=== PATIENT | female | born 1965 | race Caucasian/White ===

== ENCOUNTER → 2018-10-15 09:29 | Outpatient (CLI) | payer OTHER, SELFPAY ==
--- NOTE | 2018-10-15 | DI.US.S_ITS ---
PROCEDURE: US THYROID INDICATIONS: ONE YEAR FOLLOW UP THYROID NODULE TECHNIQUE: Real-time scanning was performed of the thyroid gland, with image documentation. COMPARISON: [facility], [place], THYROID, 08/19/2017, 8:38. FINDINGS: Right: Thyroid lobe measures 5.4 x 1.7 x 1.6 cm, and is diffusely heterogeneous in echotexture. Left: Thyroid lobe measures 5.3 x 1.3 x 1.6 cm, and is diffusely heterogeneous in echotexture. Isthmus: 2.3 mm thick. Patient is known to 6 mm nodule involving inferior pole of left thyroid lobe now measures 6 x 5 x 8 mm in size and is not significantly changed. No discrete right thyroid lobe nodule is identified. A 6 x 5 x 6 mm hypoechoic and solid appearing nodule is seen inferior to right thyroid lobe. At least 4 hypoechoic nodules are seen inferior to left thyroid lobe. No significant neovascularity is seen. Largest nodule in left neck soft tissue measures 8 x 6 x 7 mm in size. IMPRESSION: 1. Diffusely heterogeneous thyroid parenchymal echotexture with no significant interval changes in thyroid gland size. Stable hypoechoic nodule in lower pole of left thyroid lobe measures 6 x 5 x 8 mm in size. 2. Incidentally noted are subcentimeter nodules inferior to right and left thyroid lobes, and are of indeterminate etiology. Finding could represent small lymph nodes. Parathyroid nodule cannot be excluded. Consider CT of neck for further evaluation if indicated. Dictated by: Tim Garner M.D. on 10/15/2018 at 11:11 Approved by: Tim Garner M.D. on 10/15/2018 at 11:16
== END ==
PROVIDERS: Family Provider Physician Assistant; PCP Physician Assistant; Visit Provider Physician Assistant
DX: E04.2 Nontoxic multinodular goiter (principal)
CPT/HCPCS: 76536

== ENCOUNTER → 2018-10-27 09:07 | Outpatient (CLI) | payer OTHER, SELFPAY ==
--- NOTE | 2018-10-27 | DI.CT.S_ITS ---
PROCEDURE: CT SOFT TISSUE NECK W CON INDICATIONS: Nontoxic multinodular goiter TECHNIQUE: After the administration of intravenous contrast, 3.0 mm axial sections acquired from the sella to the aortic arch. Additional oblique axial 3.0 mm sections acquired through the pharynx. 3 mm thick coronal and sagittal reformats were generated. For radiation dose reduction, the following was used: automated exposure control. COMPARISON: [facility], , THYROID, 10/15/2018, 10:08. FINDINGS: Image quality: Excellent. Lymph nodes: There are multiple small surgical lymph nodes throughout the neck, most likely reactive. Vessels: Visualized vasculature appears patent. Neck spaces: The oropharynx, nasopharynx, and pharynx demonstrate no mucosal lesions. The vocal cords, false vocal cords, pyriform sinuses, epiglottis, vallecula, and tongue base all appear normal. Extramucosal spaces appear unremarkable. Glands: The parotid and submandibular glands appear normal. Thyroid gland is diffusely heterogeneous in attenuation and enhancement. A cluster of less than 5 subcentimeter nodules is seen below the inferior pole of the left thyroid lobe measuring up to 6 mm. There is a 7 mm soft tissue nodule posterior to the inferior pole of the right thyroid lobe. Miscellaneous: Visualized brain and orbits appear normal. Lung apices appear clear. Superficial soft tissues appear normal. Bones: No suspicious bony lesions. There is moderate to severe degenerative disc disease at C5-C6. Visualized sinuses and mastoids appear unremarkable. IMPRESSION: 1. Multiple small soft tissue nodules inferior to thyroid lobes bilaterally. Some nodules have appearance suggesting parathyroid adenomas on the comparison ultrasound. Please correlate with serum calcium and parathyroid hormone levels. 2. The thyroid gland demonstrates heterogeneous attenuation and enhancement, probably sequelae of thyroiditis. Please correlate with thyroid function tests. Dictated by: Bruce Pickett M.D. on 10/27/2018 at 10:53 Approved by: Bruce Pickett M.D. on 10/27/2018 at 11:10
== END ==
PROVIDERS: Family Provider Physician Assistant; PCP Physician Assistant; Visit Provider Physician Assistant
DX: E04.2 Nontoxic multinodular goiter (principal)
CPT/HCPCS: 70491; Q9967

== ENCOUNTER → 2023-09-05 11:10 | Outpatient (CLI) | payer BC, SELFPAY ==
--- NOTE | 2023-09-05 11:16 | DI.US.S_ITS ---
PROCEDURE: US THYROID INDICATIONS: THYROID NODULE TECHNIQUE: Real-time scanning was performed of the thyroid gland, with image documentation. COMPARISON: [facility], [place], US THYROID, 10/15/2018, 10:08. FINDINGS: Right: Thyroid lobe measures 5.1 x 1.5 x 1.2 cm, and is homogeneous in echotexture. Left: Thyroid lobe measures 5.5 x 1.7 x 1.1 cm, and is homogenous in echotexture. Isthmus: 0.2 cm thick. Nodule number: 1 Location: Medial left middle pole Size: 0.6 x 0.6 x 0.4 cm, previously 0.6 x 0.8 x 0.5 cm. Composition: Solid Echogenicity: Hypoechoic Shape: wider than tall. Margins: Smooth Echogenic foci: None Total points: 4 ACR TI-RADS category: Moderately suspicious Small bilateral probable benign cervical lymph nodes are noted. IMPRESSION: Stable findings. Stable subcentimeter left middle pole thyroid nodule. It is moderately suspicious by imaging criteria. Based on definitions and recommendations below, no further routine follow-up is suggested, as this nodule is less than 1 cm. ACR TI-RADS definitions and recommendations: TI-RADS 1 (benign): 0 points. FNA not needed. TI-RADS 2 (not suspicious): 2 points. FNA not needed. TI-RADS 3 (mildly suspicious): 3 points. * FNA if 2.5 cm or larger, follow up if 1.5 cm or larger (at 1, 3, and 5 years). TI-RADS 4 (moderately suspicious): 4-6 points. * FNA if 1.5 cm or larger, follow up if 1 cm or larger (at 1, 2, 3, and 5 years). TI-RADS 5 (highly suspicious): 7 points or more. * FNA if 1 cm or larger, follow up if 0.5 cm or larger (every year for 5 years). Dictated by: Ike Reynolds M.D. on 09/05/2023 at 18:37 Approved by: Ike Reynolds M.D. on 09/05/2023 at 18:40
== END ==
LOC: US 11:15
PROVIDERS: Family Provider Physician Assistant; PCP Physician Assistant; Referring Provider Physician Assistant; Visit Provider Physician Assistant
DX: E04.1 Nontoxic single thyroid nodule (principal)
CPT/HCPCS: 76536

== ENCOUNTER → 2023-10-10 11:18 | Outpatient (CLI) | payer BC, SELFPAY ==
--- NOTE | 2023-10-10 11:19 | DI.CT.S_ITS ---
PROCEDURE: CT ABDOMEN W CON INDICATIONS: MASS LEFT UPPER QUADRANT TECHNIQUE: After the administration of intravenous contrast, 5 mm thick sections acquired from the diaphragms to the iliac crests. 5 mm thick coronal and sagittal reformats were acquired. For radiation dose reduction, the following was used: automated exposure control, adjustment of mA and/or kV according to patient size. COMPARISON: None. FINDINGS: Image quality: Diagnostic. Lower Chest: No significant findings. ABDOMEN: Liver: No solid mass. Gallbladder: Decompressed. Biliary ducts: No biliary dilation. Pancreas: No ductal dilation. Spleen: Size is within normal limits. Adrenal Glands: No adrenal nodules. Kidneys and Ureters: No hydronephrosis. No solid mass. No complex renal cystic lesion which requires follow up. Stomach and Bowel: Normal colonic caliber, without significant wall thickening. Peritoneum: No abnormal intraperitoneal fluid. No free air. Ventral Wall: No hernia. Abdominal Nodes: No retroperitoneal or mesenteric adenopathy by size criteria. Vessels: Aorta and inferior vena cava are normal in size. Bones: No aggressive osseous abnormality. IMPRESSION: No mass demonstrated. No adenopathy. No free fluid. Dictated by: Reggie Helton M.D. on 10/10/2023 at 17:21 Approved by: Reggie Helton M.D. on 10/10/2023 at 17:25
== END ==
LOC: CT 11:18
PROVIDERS: Family Provider Physician Assistant; PCP Physician Assistant; Referring Provider Family Medicine; Visit Provider Family Medicine
DX: R19.02 Left upper quadrant abdominal swelling, mass and lump (principal)
CPT/HCPCS: 74160; Q9967